=== PATIENT | male | born 1945 | race Caucasian/White ===

== ENCOUNTER 2019-12-31 21:28 | Emergency (ER) | payer OTHER, SELFPAY ==
[2019-12-31 21:38] VITALS: BP 117/74; PULSE 70; RESP 20; TEMP 36.9; O2SAT 95; BMI 27.0
--- NOTE | 2019-12-31 21:53 | XR_ITS ---
WS: [id number] PORTABLE CHEST HISTORY: sob COMPARISON: 09/20/2019 Chronic emphysema. Interstitial thickening is similar to prior studies. No pneumonia. No pleural effu jordy or pneumothorax. Cardiac size: Normal. Mediastinum/Aorta: Mild atherosclerosis aorta. Mild osteopenia. Numerous surgical sutures are noted at the GE junction and inferior to the LEFT hemidiaphragm. XR/XR chest 1V portable [id number] IMPRESSION: COPD and chronic interstitial changes. No acute findings.
[2019-12-31 22:08] VITALS: PULSE 71; RESP 20; O2SAT 97
[2019-12-31] MEDS: ipratropium-albuterol 3 mL Neb INHALATION (22:08)
[2019-12-31 22:13] VITALS: PULSE 69; RESP 20; O2SAT 96
[2019-12-31] MEDS: FUROsemide 10 mg/mL SDV 10mL 60 MG IVP (22:14)
[2019-12-31 22:18] LABS: Basophils # 0.1 10^3/uL (0.0-0.1); Basophils % 1.5 %; Eosinophils # 1.8 10^3/uL (0.0-0.8); Eosinophils % 22.5 %; Hematocrit 40.2 % (42.0-52.0); Hemoglobin 12.7 g/dL (11.7-16.6); Lymphocytes # 1.4 10^3/uL (0.8-4.8); Lymphocytes % 18.3 %; Mean Corpuscular HGB Conc 31.6 g/dL (30.0-36.0); Mean Corpuscular Hemoglobin 31.4 pg (28.0-34.0); Mean Corpuscular Volume 99.3 fL (80-94); Mean Platelet Volume 9.6 fL (7.4-10.4); Monocytes # 0.6 10^3/uL (0.2-0.9); Monocytes % 7.8 %; Neutrophils # 3.9 10^3/uL (1.8-7.7); Neutrophils % 49.8 %; Nucleated Red Blood Cells % 0 %; Platelet Count 191 10^3/cmm (130-400); Red Blood Count 4.05 10^6/uL (4.1-5.3); Red Cell Distribution Width 12.3 % (12.1-15.1); White Blood Count 7.8 10^3/uL (4.0-10.0)
--- NOTE | 2019-12-31 22:20 | ED_ITS ---
HPI - SOB/Dyspnea General: Chief Complaint: Shortness of Breath/Dyspnea Stated Complaint: SOB Time Seen by Provider: 12/31/19 21:42 History of Present Illness: MD elicited complaint: shortness of breath and cough Pertinent past history: COPD Onset (ago): day(s) Timing: constant Exacerbating factors: exertion, movement and coughing Relieving factors: oxygen and bronchodilators Known history of: COPD Associated symptoms: Deny abdominal pain, chest pain, dizziness, fever(s), nausea, orthopnea, palpitations or vomiting Treatment prior to arrival: oxygen and bronchodilator Review of Systems Const: Denies: fever or chills Eyes: Denies: change in vision ENMT: Denies: painful swallowing, swelling of lips/tongue, nose bleeds, post nasal drip or facial/sinus pain Card: Reports: edema; Denies: chest pain, palpitations, irregular heart rhythm, shortness of breath on exertion or shortness of breath when lying down Resp: Reports: shortness of breath, productive cough and wheezing; Denies: non-productive cough GI: Denies: abdominal pain, nausea, vomiting or blood in stool : Denies: difficulty urinating, painful urination or blood in urine Musc: Denies: neck pain, back pain, redness or joint warmth Skin/Breast: Denies: rash, itching or redness Neuro: Denies: headache, dizziness, vertigo or confusion Psych: Reports: anxiety PFSH ED PFSH: Social History Smoking and tobacco status: former smoker Physical Exam Const: GENERAL APPEARANCE: well developed ORIENTATION/CONSCIOUSNESS: Yes oriented to person, Yes oriented to place and Yes oriented to time HENMT: COMMON NORMALS: normocephalic, external ears normal and external nose normal HEAD & SCALP: normocephalic; no scalp tenderness FACE & SINUS: normal facial exam NOSE: external nose normal and no nasal discharge EXTERNAL EAR: Yes external ears normal MOUTH: tongue normal Eye: COMMON NORMALS: PERRL, EOMs intact bilaterally and conjunctivae normal EYELID: eyelids normal CONJUNCTIVA: Yes conjunctivae normal PUPIL: Yes PERRL Neck/C-Spine: COMMON NORMALS: full ROM GENERAL: No tracheal deviation Chest: COMMONS NORMALS: inspection of chest normal CHEST: No tenderness Resp: EFFORT & INSPECTION: Yes tachypneic, No respiratory distress, No retractions, No uses accessory muscles and No tracheal deviation AUSCULTATION: no rhonchi, wheezes and diminished lung sounds Cardio: COMMON NORMALS: regular rate and regular rhythm RATE: regular rate RHYTHM: regular rhythm HEART SOUNDS: no murmurs PERIPHERAL PULSES: radial pulses present GI: INSPECTION: No abdominal distension AUSCULTATION: No hyperactive bowel sounds and No hypoactive bowel sounds PALPATION: No guarding and No rigid PERCUSSION: no dullness to percussion and no tympanic to percussion Extremity: GENERAL: Yes edema (2+ bilaterally) Neuro: SENSORIUM/ORIENTATION: Yes oriented to person, Yes oriented to place and Yes oriented to time Psych: COMMON NORMALS: mental status grossly normal Skin: COMMON NORMALS: no rashes or lesions noted GENERAL SKIN EXAM: no rashes or lesions noted Course Vital Signs: Vital signs: Vital Signs Temperature 98.4 F 12/31/19 21:38 Pulse Rate 72 12/31/19 23:29 Respiratory Rate 20 H 12/31/19 23:29 Blood Pressure 129/73 12/31/19 23:00 Pulse Oximetry 96 12/31/19 23:29 MDM - SOB/Dyspnea MDM Narrative: Medical decision making narrative: Cough. No fever.74-year-old male with a history of COPD and productive cough without fever. White blood cell count is 7.8. Hemoglobin is 12.7. Other laboratory is normal. His chest x-ray is free of infiltrate. He is wheezing on exam, improved with nebulizer treatment here. He is about out of his inhaler, so we have dispensed him 1. He is received Solu-Medrol and some Lasix. He will go home on steroids, nebulizer/inhaler, and antibiotics. Lab Data: Labs: Lab Results 12/31/19 12/31/19 Range/Units 22:01 22:01 WBC 7.8 (4.0-10.0) 10^3/ uL RBC 4.05 L (4.1-5.3) 10^6/u L Hgb 12.7 (11.7-16.6) g/dL Hct 40.2 L (42.0-52.0) % MCV 99.3 H (80-94) fL MCH 31.4 (28.0-34.0) pg MCHC 31.6 (30.0-36.0) g/dL RDW 12.3 (12.1-15.1) % Plt Count 191 (130-400) 10^3/c mm MPV 9.6 (7.4-10.4) fL Neut % (Auto) 49.8 % Lymph % (Auto) 18.3 % [place] % (Auto) 7.8 % Eos % (Auto) 22.5 % Baso % (Auto) 1.5 % Neut # (Auto) 3.9 (1.8-7.7) 10^3/u L Lymph # (Auto) 1.4 (0.8-4.8) 10^3/u L [place] # (Auto) 0.6 (0.2-0.9) 10^3/u L Eos # (Auto) 1.8 H (0.0-0.8) 10^3/u L Baso # (Auto) 0.1 (0.0-0.1) 10^3/u L Nucleated RBC % (a uto) 0 % Nucleated RBCs # 0.0 /100WBC Sodium 142 (136-145) mmol/L Potassium 4.6 (3.5-5.1) mmol/L Chloride 102 (98-107) mmol/L Carbon Dioxide 31 H (22-29) mmol/L Anion Gap 13.6 (5-19) BUN 13 (8-23) mg/dL Creatinine 1.0 (0.7-1.2) mg/dL Glucose 107 (65-115) mg/dL Calculated Osmolal ity 291 (285-295) mOsm/k g Calcium 9.5 (8.5-10.5) mg/dL Total Bilirubin 0.4 (0.15-1.2) mg/dL AST 19 (0-40) U/L ALT 13 (0-41) U/L Alkaline Phosphata se 85 (40-130) IU/L NT-Pro-B Natriuret Pep 269 (0-450) pg/mL Total Protein 6.6 (6.6-8.7) g/dL Albumin 3.9 (3.5-5.2) g/dL Globulin 2.7 (1.3-4.6) g/dL Discharge Plan Discharge Patient Disposition: Home, Self-Care Clinical Impression: Acute exacerbation of chronic obstructive airways disease Condition: Stable Prescriptions: New prednisone 20 mg tablet 60 mg PO DAILY 5 Days Qty: 15 RF: 0 doxycycline monohydrate 100 mg capsule 100 mg PO BID 7 Days Qty: 14 RF: 0 Discharge Orders: Discharge Order (Routine); Ordered 12/31/19 Ordered By: Vega Quiroga Referrals: Thony Vargas DO [Family Provider] - 4-7 days Discharge Diet: Usual diet Discharge Activity: Increase activity as tolerated Patient Instructions: Chronic Obstructive Pulmonary Disease (ED) Activity Restrictions/Additional Instructions: Return for worsening shortness of breath despite treatment, chest discomfort, fever greater than 100, mental status changes, other concerning symptoms. Coding Level of Care Code ED Party Plan Sales Host/Hostess for Chg Fwd Exam Comprehensive
[2019-12-31 22:42] LABS: Alanine Aminotransferase 13 U/L (0-41); Albumin Level 3.9 g/dL (3.5-5.2); Alkaline Phosphatase 85 IU/L (40-130); Anion Gap 13.6 (5-19); Aspartate Amino Transferase 19 U/L (0-40); Blood Urea Nitrogen 13 mg/dL (8-23); Calcium 9.5 mg/dL (8.5-10.5); Carbon Dioxide 31 mmol/L (22-29); Chloride 102 mmol/L (98-107); Globulin 2.7 g/dL (1.3-4.6); Glucose 107 mg/dL (65-115); NT Pro B Type Natriuretic Pept 269 pg/mL (0-450); Osmolality Calculated 291 mOsm/kg (285-295); Potassium 4.6 mmol/L (3.5-5.1); Sodium 142 mmol/L (136-145); Total Bilirubin 0.4 mg/dL (0.15-1.2); Total Protein 6.6 g/dL (6.6-8.7)
[2019-12-31 23:00] VITALS: BP 129/73; PULSE 72; O2SAT 96
[2019-12-31 23:29] VITALS: PULSE 72; RESP 20; O2SAT 96
[2019-12-31] MEDS: albuterol 8 gm MDI 4 PUFF INHALATION (23:29)
[2019-12-31] MEDS: doxycycline 100 mg Tablet PO (23:42)
[2019-12-31 23:48] VITALS: BP 119/72; PULSE 73; RESP 18; O2SAT 95
== END 2019-12-31 23:48 | disposition home or self-care (01) ==
PROVIDERS: Emergency Provider Emergency Medicine; Family Provider Emergency Medicine Emergency Medical Services
DX: J44.1 Chronic obstructive pulmonary disease with (acute) exacerbation (principal); Z87.891 Personal history of nicotine dependence
CPT/HCPCS: 12345; 36415; 71045; 80053; 83880; 85025; 87040; 87070; 87205; 94640; 96374; 96375; 99283; 99284; J1940; J2930; J3535

== ENCOUNTER 2020-02-09 23:48 | Emergency (ER) | payer OTHER, SELFPAY ==
[2020-02-09 23:59] VITALS: BP 135/79; PULSE 71; RESP 18; TEMP 36.6; O2SAT 91; BMI 25.8
--- NOTE | 2020-02-10 00:19 | XR_ITS ---
WS: [id number] XR chest 1V portable [id number] REASON FOR EXAM: sob FINDINGS: The heart and mediastinal interfaces normal. Comparison to previous exam of December 31, 2019 no interval changes. The lung romero are well aerated. No pneumonia, pleural effusion, pulmonary edema, The hilum and apices normal. No osseous abnormalities. Postop changes in the upper abdomen. XR/XR chest 1V portable [id number] IMPRESSION: Negative chest for active pathology.
--- NOTE | 2020-02-10 00:20 | ECG_ITS ---
Measurements Intervals [place] Rate: 65 P: 52 NE: 151 QRS: 66 QRSD: 98 T: 77 QT: 384 QTc: 399 SINUS RHYTHM INCOMPLETE RIGHT BUNDLE BRANCH BLOCK [90+ ms QRS DURATION, TERMINAL R IN V1/V2, 40+ ms S IN I/aVL/V4/V5/V6] Compared to ECG 09/20/2019 21:17:44 Incomplete right bundle-branch block now present Myocardial infarct finding no longer present Electronically Signed On 02-10-2020 11:38:23 CDT by Kurt Stern M.D. [id number]
--- NOTE | 2020-02-10 00:20 | W.ED.SOB ---
HPI - SOB/Dyspnea General: Chief Complaint: Shortness of Breath/Dyspnea Stated Complaint: sob Time Seen by Provider: 02/10/20 00:06 History of Present Illness: HPI Narrative: 74-year-old gentleman with a history of COPD presents with wheezing, and shortness of breath. He is coughing with some sputum production. He denies fever. This really started yesterday and has been increasing in severity. He has been using his inhaler up to every 2 hours MD elicited complaint: shortness of breath and cough Pertinent past history: COPD Onset (ago): hour(s) (24) Timing: constant and progressively worsening Severity: moderate Exacerbating factors: exertion and movement Relieving factors: nothing Known history of: COPD Associated symptoms: Reports chest congestion and cough; Deny chest pain, diaphoresis, dizziness, fever(s) or nausea Review of Systems Const: Denies: fever or diaphoresis Eyes: Denies: change in vision ENMT: Denies: painful swallowing, swelling of lips/tongue, post nasal drip or facial/sinus pain Card: Denies: chest pain Resp: Reports: chest congestion GI: Denies: nausea : Denies: difficulty urinating, painful urination or blood in urine Musc: Denies: joint warmth Skin/Breast: Denies: rash or itching Neuro: Denies: headache, dizziness or vertigo Psych: Denies: anxiety PFSH ED PFSH: Social History Smoking and tobacco status: never smoked Physical Exam Const: GENERAL APPEARANCE: well developed ORIENTATION/CONSCIOUSNESS: Yes oriented to person, Yes oriented to place and Yes oriented to time HENMT: COMMON NORMALS: normocephalic HEAD & SCALP: normocephalic FACE & SINUS: normal facial exam NOSE: no nasal discharge THROAT: posterior oropharynx normal; no peritonsillar mass Eye: COMMON NORMALS: PERRL, EOMs intact bilaterally and conjunctivae normal EYELID: eyelids normal CONJUNCTIVA: Yes conjunctivae normal PUPIL: Yes PERRL Neck/C-Spine: GENERAL: No tracheal deviation Chest: COMMONS NORMALS: inspection of chest normal CHEST: No tenderness Resp: EFFORT & INSPECTION: No tachypneic, Yes respiratory distress, No retractions, Yes uses accessory muscles and No tracheal deviation AUSCULTATION: no rhonchi, wheezes and diminished lung sounds Cardio: COMMON NORMALS: regular rate and regular rhythm RATE: regular rate RHYTHM: regular rhythm HEART SOUNDS: no murmurs PERIPHERAL PULSES: radial pulses present GI: INSPECTION: No abdominal distension AUSCULTATION: No hyperactive bowel sounds and No hypoactive bowel sounds PALPATION: No guarding and No rigid PERCUSSION: no dullness to percussion and no tympanic to percussion Neuro: SENSORIUM/ORIENTATION: Yes oriented to person, Yes oriented to place and Yes oriented to time Psych: COMMON NORMALS: mental status grossly normal Skin: COMMON NORMALS: no rashes or lesions noted GENERAL SKIN EXAM: no rashes or lesions noted Course Vital Signs: Vital signs: Vital Signs Temperature 97.7 F 02/10/20 03:11 Pulse Rate 67 02/10/20 03:11 Respiratory Rate 18 02/10/20 03:11 Blood Pressure 119/89 02/10/20 03:11 Pulse Oximetry 94 02/10/20 03:11 MDM - SOB/Dyspnea MDM Narrative: Medical decision making narrative: 74-year-old male gentleman with a history of COPD. He presents in mild respiratory distress. The plan was to observe the patient, has he had significant tightness and wheezing with diminished air sounds on arrival. After DuoNeb treatment, and Solu-Medrol, along with some diuresis, he states that he is breathing much better now and would like to go home. He is wheezing less. He is not using the accessory muscles he was. His chest x-ray does not show pneumonia. Lab Data: Labs: Lab Results 02/10/20 02/10/20 02/10/20 Range/Units 00:30 00:30 00:30 WBC 9.1 (4.0-10.0) 10^3/ uL RBC 4.10 (4.1-5.3) 10^6/u L Hgb 12.7 (11.7-16.6) g/dL Hct 39.8 L (42.0-52.0) % MCV 97.1 H (80-94) fL MCH 31.0 (28.0-34.0) pg MCHC 31.9 (30.0-36.0) g/dL RDW 12.2 (12.1-15.1) % Plt Count 208 (130-400) 10^3/c mm MPV 10.0 (7.4-10.4) fL Neut % (Auto) 52.7 % Lymph % (Auto) 17.6 % [place] % (Auto) 9.0 % Eos % (Auto) 18.3 % Baso % (Auto) 2.2 % Neut # (Auto) 4.8 (1.8-7.7) 10^3/u L Lymph # (Auto) 1.6 (0.8-4.8) 10^3/u L [place] # (Auto) 0.8 (0.2-0.9) 10^3/u L Eos # (Auto) 1.7 H (0.0-0.8) 10^3/u L Baso # (Auto) 0.2 H (0.0-0.1) 10^3/u L Nucleated RBC % (a uto) 0 % Nucleated RBCs # 0.0 /100WBC Specimen Type Sample Site ABG pH (7.35-7.45) ABG pCO2 (35-45) mmHg ABG pO2 (80.0-100.0) mmH g ABG HCO3 (22-26) mmol/L ABG Base Excess (-2.0-2.0) mmol/ L Edvin Test Hematocrit (42-52) % Hgb O2 Saturation (95-100) % Carboxyhemoglobin (0.4-20.1) %THgb Methemoglobin (0.4-1.5) % Total Hemoglobin (14-18) g/dL O2 Delivery Device O2 Liters/Min % Cloth Mercerizing Supervisor ID Sodium 137 (136-145) mmol/L Potassium 5.0 (3.5-5.1) mmol/L Chloride 99 (98-107) mmol/L Carbon Dioxide 29 (22-29) mmol/L Anion Gap 14.0 (5-19) BUN 16 (8-23) mg/dL Creatinine 1.1 (0.7-1.2) mg/dL Glucose 106 (65-115) mg/dL Calculated Osmolal ity 281 L (285-295) mOsm/k g Calcium 9.7 (8.5-10.5) mg/dL Total Bilirubin 0.2 (0.15-1.2) mg/dL AST 32 (0-40) U/L ALT 15 (0-41) U/L Alkaline Phosphata se 90 (40-130) IU/L Troponin T Baselin e 18 H (0-15) ng/mL Troponin T 120 Min [place] (0-15) ng/mL Delta Troponin T (0-10) ABS# NT-Pro-B Natriuret Pep 214 (0-450) pg/mL Total Protein 6.8 (6.6-8.7) g/dL Albumin 3.7 (3.5-5.2) g/dL Globulin 3.1 (1.3-4.6) g/dL 02/10/20 02/10/20 Range/Units 00:50 02:30 WBC (4.0-10.0) 10^3/ uL RBC (4.1-5.3) 10^6/u L Hgb (11.7-16.6) g/dL Hct (42.0-52.0) % MCV (80-94) fL MCH (28.0-34.0) pg MCHC (30.0-36.0) g/dL RDW (12.1-15.1) % Plt Count (130-400) 10^3/c mm MPV (7.4-10.4) fL Neut % (Auto) % Lymph % (Auto) % [place] % (Auto) % Eos % (Auto) % Baso % (Auto) % Neut # (Auto) (1.8-7.7) 10^3/u L Lymph # (Auto) (0.8-4.8) 10^3/u L [place] # (Auto) (0.2-0.9) 10^3/u L Eos # (Auto) (0.0-0.8) 10^3/u L Baso # (Auto) (0.0-0.1) 10^3/u L Nucleated RBC % (a uto) % Nucleated RBCs # /100WBC Specimen Type Arterial Sample Site Radial, right ABG pH 7.38 (7.35-7.45) ABG pCO2 49.2 H (35-45) mmHg ABG pO2 72.2 L (80.0-100.0) mmH g ABG HCO3 29.4 H (22-26) mmol/L ABG Base Excess 3.4 H (-2.0-2.0) mmol/ L Edvin Test Pos Hematocrit 41.3 L (42-52) % Hgb O2 Saturation 94.3 L (95-100) % Carboxyhemoglobin 0.4 (0.4-20.1) %THgb Methemoglobin 0.7 (0.4-1.5) % Total Hemoglobin 13.5 L (14-18) g/dL O2 Delivery Device Nc O2 Liters/Min 2.0 % Cloth Mercerizing Supervisor ID [email or web address] Sodium (136-145) mmol/L Potassium (3.5-5.1) mmol/L Chloride (98-107) mmol/L Carbon Dioxide (22-29) mmol/L Anion Gap (5-19) BUN (8-23) mg/dL Creatinine (0.7-1.2) mg/dL Glucose (65-115) mg/dL Calculated Osmolal ity (285-295) mOsm/k g Calcium (8.5-10.5) mg/dL Total Bilirubin (0.15-1.2) mg/dL AST (0-40) U/L ALT (0-41) U/L Alkaline Phosphata se (40-130) IU/L Troponin T Baselin e (0-15) ng/mL Troponin T 120 Min [place] 15.37 H (0-15) ng/mL Delta Troponin T -2.63 L (0-10) ABS# NT-Pro-B Natriuret Pep (0-450) pg/mL Total Protein (6.6-8.7) g/dL Albumin (3.5-5.2) g/dL Globulin (1.3-4.6) g/dL Discharge Plan Discharge Patient Disposition: Home, Self-Care Clinical Impression: Acute exacerbation of chronic obstructive airways disease Condition: Stable Prescriptions: New prednisone 10 mg tablet 10 mg PO DAILY Qty: 21 RF: 0 doxycycline hyclate 100 mg capsule 100 mg PO BID Qty: 14 RF: 0 Discharge Orders: Discharge Order (Routine); Ordered 02/10/20 Ordered By: Vega Quiroga Discharge Diet: Advance as tolerated Discharge Activity: Increase activity as tolerated Patient Instructions: Chronic Obstructive Pulmonary Disease (ED) Activity Restrictions/Additional Instructions: Return for worsening shortness of breath, fever despite 3 doses of antibiotics, chest discomfort, other concerning symptoms. Coding Level of Care Code ED Ocean Rescue Lieutenant for Chg Fwd Exam Comprehensive
[2020-02-10] MEDS: FUROsemide 10 mg/mL SDV 10mL 60 MG IVP (00:42)
[2020-02-10 00:46] LABS: Basophils # 0.2 10^3/uL (0.0-0.1); Basophils % 2.2 %; Eosinophils # 1.7 10^3/uL (0.0-0.8); Eosinophils % 18.3 %; Hematocrit 39.8 % (42.0-52.0); Hemoglobin 12.7 g/dL (11.7-16.6); Lymphocytes # 1.6 10^3/uL (0.8-4.8); Lymphocytes % 17.6 %; Mean Corpuscular HGB Conc 31.9 g/dL (30.0-36.0); Mean Corpuscular Volume 97.1 fL (80-94); Monocytes # 0.8 10^3/uL (0.2-0.9); Neutrophils # 4.8 10^3/uL (1.8-7.7); Neutrophils % 52.7 %; Nucleated Red Blood Cells % 0 %; Platelet Count 208 10^3/cmm (130-400); Red Cell Distribution Width 12.2 % (12.1-15.1); White Blood Count 9.1 10^3/uL (4.0-10.0)
[2020-02-10] MEDS: ipratropium-albuterol 3 mL Neb INHALATION (00:53)
[2020-02-10 00:57] LABS: ABG PCO2 49.2 mmHg (35-45); ABG PH Result 7.38 (7.35-7.45); Arterial Blood Gas Hematocrit 41.3 % (42-52); Base Excess ABG 3.4 mmol/L (-2.0-2.0); Blood Gas Allen Test Pos; Blood Gas Sample Site Radial, right; Blood Gas Sample Type Arterial; Carboxyhemoglobin 0.4 %THgb (0.4-20.1); HCO3 ABG 29.4 mmol/L (22-26); HGB O2 Sat 94.3 % (95-100); Methemoglobin 0.7 % (0.4-1.5); Oxygen Device NC; PO2 ABG 72.2 mmHg (80.0-100.0); Total Hemoglobin 13.5 g/dL (14-18)
[2020-02-10 00:59] VITALS: PULSE 87; RESP 22; O2SAT 92
[2020-02-10 01:10] LABS: Troponin(5th) Baseline 18 ng/mL (0-15)
[2020-02-10 01:17] LABS: Albumin Level 3.7 g/dL (3.5-5.2); Alkaline Phosphatase 90 IU/L (40-130); Blood Urea Nitrogen 16 mg/dL (8-23); Calcium 9.7 mg/dL (8.5-10.5); Carbon Dioxide 29 mmol/L (22-29); Chloride 99 mmol/L (98-107); Globulin 3.1 g/dL (1.3-4.6); Glucose 106 mg/dL (65-115); NT Pro B Type Natriuretic Pept 214 pg/mL (0-450); Osmolality Calculated 281 mOsm/kg (285-295); Sodium 137 mmol/L (136-145); Total Bilirubin 0.2 mg/dL (0.15-1.2); Total Protein 6.8 g/dL (6.6-8.7)
[2020-02-10 02:06] LABS: Alanine Aminotransferase 15 U/L (0-41); Aspartate Amino Transferase 32 U/L (0-40)
[2020-02-10 03:07] LABS: Troponin 5 2HR 15.37 ng/mL (0-15)
[2020-02-10 03:11] VITALS: BP 119/89; PULSE 67; RESP 18; TEMP 36.5; O2SAT 94
[2020-02-10 03:15] LABS: Troponin 5 2HR Delta -2.63 ABS# (0-10)
[2020-02-10 03:42] VITALS: PULSE 76; RESP 16; O2SAT 98
[2020-02-10 03:54] VITALS: PULSE 77; RESP 18; O2SAT 97
== END 2020-02-10 03:45 | disposition home or self-care (01) ==
PROVIDERS: Emergency Provider Emergency Medicine
DX: J44.1 Chronic obstructive pulmonary disease with (acute) exacerbation (principal)
CPT/HCPCS: 12345; 36600; 71045; 80053; 82805; 83880; 84484; 85025; 93005; 94640; 96374; 96375; 99282; 99284; J1940; J2930; J7611

== ENCOUNTER 2020-04-10 16:18 | Emergency (ER) | payer OTHER, MEDICARE, SELFPAY ==
[2020-04-10 16:27] VITALS: BP 114/62; PULSE 81; RESP 20; TEMP 36.6; O2SAT 92; BMI 25.8
--- NOTE | 2020-04-10 17:02 | ECG_ITS ---
[facility] Test Date: 2020-04-10 Pat Name: Charles Warren Department: Room: Gender: Male Prescription Clerk Lenses: : 1945 Requested By: Scott Sanchez Order Number: [id number] Serenity MD: Meka Crisostomo M.D. Measurements Intervals [place] Rate: 76 P: 60 W[place]: 149 QRS: 57 QRSD: 97 T: 71 QT: 358 QTc: 403 Interpretive Statements SINUS RHYTHM Compared to ECG 02/10/2020 01:35:35 Incomplete right bundle-branch block no longer present Electronically Signed On 04-11-2020 17:05:02 CDT by Meka Crisostomo M.D. [id number]
--- NOTE | 2020-04-10 17:02 | XRR_ITS ---
PROCEDURE INFORMATION: Exam: XR Chest, 1 View Exam date and time: 04/10/2020 5:21 PM Age: 74 years old Clinical indication: Patient HX: Shortness of breath. HX of emphysema; Additional info: Dyspnea/cough TECHNIQUE: Imaging protocol: XR of the chest Views: 1 view. COMPARISON: No relevant prior studies available. FINDINGS: Lungs: Underlying interstitial coarsening/thickening. No lobar consolidation. Hyperinflation. Pleural space: Unremarkable. No pleural effusion. No pneumothorax. Heart/Mediastinum: Surgical clips area of GE junction and left upper quadrant of the abdomen. Vasculature: Calcified thoracic aorta. Bones/joints: Degenerative appearance right acromioclavicular joint and thoracic spine. Osteopenia. XR/XR chest 1V portable [id number] IMPRESSION: Underlying interstitial coarsening/thickening.
--- NOTE | 2020-04-10 17:02 | W.ED.SOB ---
Documented by User: Scott Phan DO 04/11/20 15:46 HPI - SOB/Dyspnea General: Chief Complaint: Shortness of Breath/Dyspnea Stated Complaint: sob Time Seen by Provider: 04/10/20 16:59 History of Present Illness: HPI Narrative: 74 yo male comes in with complaint of COPD worsening today's been progressively worsening the last 3 days she usually uses 3 L/min by oxygen at home today he is several nebs he is not had any change in cough not had any fever but he is still having a productive cough which she states is his normal baseline after nebulizer will cough some things up on a regular basis. He has not been around anybody that said COVID-19 that he is aware of. He did not use any nebulizers just prior to coming in today. MD elicited complaint: cough Pertinent past history: COPD Onset (ago): day(s) Timing: intermittent Severity: moderate Exacerbating factors: exertion Relieving factors: bronchodilators Known history of: COPD Associated symptoms: Reports chest congestion, cough and nausea; Deny chest pain, fever(s) or orthopnea Treatment prior to arrival: oxygen and bronchodilator Review of Systems Const: Denies: fever(s), chills, body aches, change in appetite, fatigue or malaise ENMT: Denies: throat pain, ear or mastoid pain, nasal discharge or nasal congestion Card: Denies: chest pain, edema, dyspnea on exertion or orthopnea Resp: Reports: chest congestion GI: Reports: nausea : Denies: flank pain, dysuria, urinary frequency or urinary urgency Skin/Breast: Denies: rash or pruritus PFSH ED PFSH: Medical History (Updated 04/11/20 @ 15:44 by Scott Phan DO) COPD (chronic obstructive pulmonary disease) Diverticulosis Gastric ulcer Surgical History (Updated 04/11/20 @ 15:44 by Scott Phan DO) History of arthroplasty of left knee History of colon resection Social History Smoking and tobacco status: never smoked Physical Exam Const: COMMON NORMALS: no acute distress GENERAL APPEARANCE: cooperative and comfortable ORIENTATION/CONSCIOUSNESS: Yes awake, Yes oriented to person, Yes oriented to place and Yes oriented to time HENMT: COMMON NORMALS: normocephalic, atraumatic, hearing grossly normal bilaterally, external ears normal, EAC's normal, TM's normal bilaterally and Normal nasal mucous membranes and turbinates present HEAD & SCALP: normocephalic and atraumatic NOSE: Normal nasal mucous membranes and turbinates present EXTERNAL EAR: Yes external ears normal EXTERNAL AUDITORY CANAL: EAC's normal TYMPANIC MEMBRANE: TM's normal bilaterally Eye: COMMON NORMALS: Equal, round and reactive pupils present, EOMs intact bilaterally, conjunctivae normal and no scleral icterus CONJUNCTIVA: Yes conjunctivae normal PUPIL: Yes Equal, round and reactive pupils present Neck/C-Spine: COMMON NORMALS: full ROM, no lymphadenopathy, supple and no JVD Lymph: LYMPHATIC: no lymphadenopathy noted and no lymphedema noted Resp: COMMON NORMALS: normal respiratory effort, No retractions, No use of accessory muscles and clear to auscultation bilaterally AUSCULTATION: clear to auscultation bilaterally Cardio: COMMON NORMALS: no JVD, regular rate, regular rhythm and No murmurs present (Cardio) RATE: regular rate RHYTHM: regular rhythm GI: COMMON NORMALS: Soft to palpation and No hepatosplenomegaly present AUSCULTATION: Yes normoactive bowel sounds PALPATION: Yes Soft to palpation, No Tenderness to palpation present (GI), No Guarding due to palpation present (GI) and Yes No hepatosplenomegaly present Extremity: COMMON NORMALS: normal to inspection, capillary refill normal, no clubbing, cyanosis or edema, no calf tenderness and no pedal edema Neuro: SENSORIUM/ORIENTATION: Yes oriented to person, Yes oriented to place and Yes oriented to time Skin: COMMON NORMALS: no rashes or lesions noted GENERAL SKIN EXAM: no rashes or lesions noted Course Vital Signs: Vital signs: Vital Signs Temperature 97.9 F 04/10/20 16:27 Pulse Rate 76 04/10/20 19:56 Respiratory Rate 20 H 04/10/20 19:56 Blood Pressure 132/63 04/10/20 19:56 Pulse Oximetry 95 04/10/20 19:56 MDM - SOB/Dyspnea MDM Narrative: Medical decision making narrative: Case turned over to Dr. Freedman at change of shift see his note for definitive diagnosis and disposition Lab Data: Labs: Lab Results 04/10/20 04/10/20 04/10/20 Range/Units 17:33 17:33 17:33 WBC 9.3 (4.0-10.0) 10^3/ uL RBC 3.83 L (4.1-5.3) 10^6/u L Hgb 11.8 (11.7-16.6) g/dL Hct 38.4 L (42.0-52.0) % MCV 100.3 H (80-94) fL MCH 30.8 (28.0-34.0) pg MCHC 30.7 (30.0-36.0) g/dL RDW 13.0 (12.1-15.1) % Plt Count 220 (130-400) 10^3/c mm MPV 9.4 (7.4-10.4) fL Neut % (Auto) 51.4 % Lymph % (Auto) 16.8 % Morehouse % (Auto) 9.6 % Eos % (Auto) 20.4 % Baso % (Auto) 1.7 % Neut # (Auto) 4.75 (1.8-7.7) 10^3/u L Lymph # (Auto) 1.6 (0.8-4.8) 10^3/u L Morehouse # (Auto) 0.9 (0.2-0.9) 10^3/u L Eos # (Auto) 1.9 H (0.0-0.8) 10^3/u L Baso # (Auto) 0.2 H (0.0-0.1) 10^3/u L Nucleated RBC % (a uto) 0 % Nucleated RBCs # 0.0 /100WBC Specimen Type Sample Site ABG pH (7.35-7.45) ABG pCO2 (35-45) mmHg ABG pO2 (80.0-100.0) mmH g ABG HCO3 (22-26) mmol/L ABG O2 Saturation ABG Base Excess (-2.0-2.0) mmol/ L Edvin Test A-a O2 Gradient (5-10) mmHg Hematocrit (42-52) % Hgb O2 Saturation (95-100) % Carboxyhemoglobin (0.4-20.1) %THgb Methemoglobin (0.4-1.5) % Total Hemoglobin (14-18) g/dL Ionized Calcium (1.1-1.4) mmol/L O2 Delivery Device O2 Liters/Min % FiO2 % Wildlife [employer] Professional ID Sodium 141 (136-145) mmol/L Potassium 4.4 (3.5-5.1) mmol/L Chloride 100 (98-107) mmol/L Carbon Dioxide 35 H (22-29) mmol/L Anion Gap 10.4 (5-19) BUN 16 (8-23) mg/dL Creatinine 1.3 H (0.7-1.2) mg/dL Glucose 100 (65-115) mg/dL Calculated Osmolal ity 288 (285-295) mOsm/k g Calcium 9.4 (8.5-10.5) mg/dL Total Bilirubin 0.4 (0.15-1.2) mg/dL AST 26 (0-40) U/L ALT 17 (0-41) U/L Alkaline Phosphata se 79 (40-130) IU/L Troponin T Baselin e 25 H (0-15) ng/L Troponin T 120 Min kenaitze (0-15) ng/L Delta Troponin T (0-10) ABS# Total Protein 6.5 L (6.6-8.7) g/dL Albumin 3.8 (3.5-5.2) g/dL Globulin 2.7 (1.3-4.6) g/dL 04/10/20 04/10/20 Range/Units 18:06 18:49 WBC (4.0-10.0) 10^3/ uL RBC (4.1-5.3) 10^6/u L Hgb (11.7-16.6) g/dL Hct (42.0-52.0) % MCV (80-94) fL MCH (28.0-34.0) pg MCHC (30.0-36.0) g/dL RDW (12.1-15.1) % Plt Count (130-400) 10^3/c mm MPV (7.4-10.4) fL Neut % (Auto) % Lymph % (Auto) % Morehouse % (Auto) % Eos % (Auto) % Baso % (Auto) % Neut # (Auto) (1.8-7.7) 10^3/u L Lymph # (Auto) (0.8-4.8) 10^3/u L [place]house # (Auto) (0.2-0.9) 10^3/u L Eos # (Auto) (0.0-0.8) 10^3/u L Baso # (Auto) (0.0-0.1) 10^3/u L Nucleated RBC % (a uto) % Nucleated RBCs # /100WBC Specimen Type Arterial Sample Site Radial, left ABG pH 7.42 (7.35-7.45) ABG pCO2 53.6 H (35-45) mmHg ABG pO2 45.5 L (80.0-100.0) mmH g ABG HCO3 34.7 H (22-26) mmol/L ABG O2 Saturation 83.9 ABG Base Excess 8.6 H (-2.0-2.0) mmol/ L Edvin Test Pos A-a O2 Gradient 86.4 H (5-10) mmHg Hematocrit 38.5 L (42-52) % Hgb O2 Saturation 82.5 L (95-100) % Carboxyhemoglobin 0.9 (0.4-20.1) %THgb Methemoglobin 0.8 (0.4-1.5) % Total Hemoglobin 12.6 L (14-18) g/dL Ionized Calcium 1.2 (1.1-1.4) mmol/L O2 Delivery Device Nc O2 Liters/Min 2.0 % FiO2 28.0 % Wildlife Policy Professional ID ed Sodium 142.0 (136-145) mmol/L Potassium 3.8 (3.5-5.1) mmol/L Chloride (98-107) mmol/L Carbon Dioxide (22-29) mmol/L Anion Gap (5-19) BUN (8-23) mg/dL Creatinine (0.7-1.2) mg/dL Glucose 100.0 (65-115) mg/dL Calculated Osmolal ity (285-295) mOsm/k g Calcium (8.5-10.5) mg/dL Total Bilirubin (0.15-1.2) mg/dL AST (0-40) U/L ALT (0-41) U/L Alkaline Phosphata se (40-130) IU/L Troponin T Baselin e (0-15) ng/L Troponin T 120 Min kenaitze 23.45 H (0-15) ng/L Delta Troponin T -1.55 L (0-10) ABS# Total Protein (6.6-8.7) g/dL Albumin (3.5-5.2) g/dL Globulin (1.3-4.6) g/dL Discharge Plan Discharge Patient Disposition: Home, Self-Care Clinical Impression: Acute exacerbation of chronic obstructive airways disease Condition: Stable Prescriptions: New prednisone 10 mg tablet 20 mg PO TID 5 Days Qty: 30 RF: 0 doxycycline hyclate 100 mg capsule 100 mg PO BID 10 Days Qty: 20 RF: 0 albuterol sulfate 90 mcg/actuation HFA aerosol inhaler 2 inh INHALATION Q4H PRN (Reason: shortness of breath or wheezing) Qty: 6.7 RF: 0 No Action prednisone 10 mg tablet 10 mg PO DAILY Qty: 21 RF: 0 doxycycline hyclate 100 mg capsule 100 mg PO BID Qty: 14 RF: 0 Discharge Orders: Discharge Order (Routine); Ordered 04/10/20 Ordered By: Margy Read Referrals: Connor Garcia MD [Physician] - 4-7 days Discharge Diet: Usual diet Discharge Activity: Increase activity as tolerated Patient Instructions: Chronic Obstructive Pulmonary Disease (ED) Activity Restrictions/Additional Instructions: Please return to the ER immediately for any of the signs or symptoms listed on your discharge instruction sheets, worsening/changing of your symptoms, you are not getting better as quickly as expected, or for ANY other cause or concerns. Return to the ER for chest pain, new onset of fever, worsening of your shortness of breath, or for any other cause for concern. Discharge Date/Time: 04/10/20 19:57 Sign Out Sign Out Data: Patient Sign Out occurred on 04/10/20 at 18:11. Patient's care was discussed, and care was transferred from to Margy Read. Coding Level of Care Code ED Drafter Commercial for Chg Fwd Documented by User: Margy Read 04/10/20 19:31 HPI - SOB/Dyspnea General: Chief Complaint: Shortness of Breath/Dyspnea Stated Complaint: sob Time Seen by Provider: 04/10/20 16:59 PFSH ED PFSH: Medical History (Updated 07/09/20 @ 15:44 by Scott Phan DO) COPD (chronic obstructive pulmonary disease) Diverticulosis Gastric ulcer Surgical History (Updated 04/11/20 @ 15:44 by Scott Phan DO) History of arthroplasty of left knee History of colon resection Social History Smoking and tobacco status: never smoked Course Vital Signs: Vital signs: Vital Signs Temperature 97.9 F 04/10/20 16:27 Pulse Rate 76 04/10/20 19:56 Respiratory Rate 20 H 04/10/20 19:56 Blood Pressure 132/63 04/10/20 19:56 Pulse Oximetry 95 04/10/20 19:56 MDM - SOB/Dyspnea MDM Narrative: Medical decision making narrative: 1829 -Case inherited by me at change of shift from Dr. Phan. Please see his note for his history, physical exam and medical decision-making notes. Patient described to me is likely a COPD exacerbation. Question of chest pain by Dr. Phan. Upon my history the patient states he is never had chest pain. His first EKG is unremarkable. His first troponin is slightly elevated with no old for comparison. Patient has some wheezing and rhonchi on exam but he states he feels much better after his breathing treatment. After discussion he reluctantly agrees to stay for another EKG and troponin but is adamant he wants to go home. 0 -patient is still wanting to go home and his breathing is better. I will send him home with an albuterol inhaler, prednisone and doxycycline. He is not on of these medications at home normally. He agrees to follow-up with his doctor and have also referred him to Dr. Garcia. I again reviewed the reasons for him return to the ER and he states he understands. He will follow-up as directed or return here if needed. Lab Data: Attestation: I reviewed the patient's lab results. Labs: Lab Results 04/10/20 04/10/20 04/10/20 Range/Units 17:33 17:33 17:33 WBC 9.3 (4.0-10.0) 10^3/ uL RBC 3.83 L (4.1-5.3) 10^6/u L Hgb 11.8 (11.7-16.6) g/dL Hct 38.4 L (42.0-52.0) % MCV 100.3 H (80-94) fL MCH 30.8 (28.0-34.0) pg MCHC 30.7 (30.0-36.0) g/dL RDW 13.0 (12.1-15.1) % Plt Count 220 (130-400) 10^3/c mm MPV 9.4 (7.4-10.4) fL Neut % (Auto) 51.4 % Lymph % (Auto) 16.8 % Morehouse % (Auto) 9.6 % Eos % (Auto) 20.4 % Baso % (Auto) 1.7 % Neut # (Auto) 4.75 (1.8-7.7) 10^3/u L Lymph # (Auto) 1.6 (0.8-4.8) 10^3/u L Morehouse # (Auto) 0.9 (0.2-0.9) 10^3/u L Eos # (Auto) 1.9 H (0.0-0.8) 10^3/u L Baso # (Auto) 0.2 H (0.0-0.1) 10^3/u L Nucleated RBC % (a uto) 0 % Nucleated RBCs # 0.0 /100WBC Specimen Type Sample Site ABG pH (7.35-7.45) ABG pCO2 (35-45) mmHg ABG pO2 (80.0-100.0) mmH g ABG HCO3 (22-26) mmol/L ABG O2 Saturation ABG Base Excess (-2.0-2.0) mmol/ L Edvin Test A-a O2 Gradient (5-10) mmHg Hematocrit (42-52) % Hgb O2 Saturation (95-100) % Carboxyhemoglobin (0.4-20.1) %THgb Methemoglobin (0.4-1.5) % Total Hemoglobin (14-18) g/dL Ionized Calcium (1.1-1.4) mmol/L O2 Delivery Device O2 Liters/Min % FiO2 % Wildlife Policy Professional ID Sodium 141 (136-145) mmol/L Potassium 4.4 (3.5-5.1) mmol/L Chloride 100 (98-107) mmol/L Carbon Dioxide 35 H (22-29) mmol/L Anion Gap 10.4 (5-19) BUN 16 (8-23) mg/dL Creatinine 1.3 H (0.7-1.2) mg/dL Glucose 100 (65-115) mg/dL Calculated Osmolal ity 288 (285-295) mOsm/k g Calcium 9.4 (8.5-10.5) mg/dL Total Bilirubin 0.4 (0.15-1.2) mg/dL AST 26 (0-40) U/L ALT 17 (0-41) U/L Alkaline Phosphata se 79 (40-130) IU/L Troponin T Baselin e 25 H (0-15) ng/L Troponin T 120 Min kenaitze (0-15) ng/L Delta Troponin T (0-10) ABS# Total Protein 6.5 L (6.6-8.7) g/dL Albumin 3.8 (3.5-5.2) g/dL Globulin 2.7 (1.3-4.6) g/dL 04/10/20 04/10/20 Range/Units 18:06 18:49 WBC (4.0-10.0) 10^3/ uL RBC (4.1-5.3) 10^6/u L Hgb (11.7-16.6) g/dL Hct (42.0-52.0) % MCV (80-94) fL MCH (28.0-34.0) pg MCHC (30.0-36.0) g/dL RDW (12.1-15.1) % Plt Count (130-400) 10^3/c mm MPV (7.4-10.4) fL Neut % (Auto) % Lymph % (Auto) % Morehouse % (Auto) % Eos % (Auto) % Baso % (Auto) % Neut # (Auto) (1.8-7.7) 10^3/u L Lymph # (Auto) (0.8-4.8) 10^3/u L Morehouse # (Auto) (0.2-0.9) 10^3/u L Eos # (Auto) (0.0-0.8) 10^3/u L Baso # (Auto) (0.0-0.1) 10^3/u L Nucleated RBC % (a uto) % Nucleated RBCs # /100WBC Specimen Type Arterial Sample Site Radial, left ABG pH 7.42 (7.35-7.45) ABG pCO2 53.6 H (35-45) mmHg ABG pO2 45.5 L (80.0-100.0) mmH g ABG HCO3 34.7 H (22-26) mmol/L ABG O2 Saturation 83.9 ABG Base Excess 8.6 H (-2.0-2.0) mmol/ L Edvin Test Pos A-a O2 Gradient 86.4 H (5-10) mmHg Hematocrit 38.5 L (42-52) % Hgb O2 Saturation 82.5 L (95-100) % Carboxyhemoglobin 0.9 (0.4-20.1) %THgb Methemoglobin 0.8 (0.4-1.5) % Total Hemoglobin 12.6 L (14-18) g/dL Ionized Calcium 1.2 (1.1-1.4) mmol/L O2 Delivery Device Nc O2 Liters/Min 2.0 % FiO2 28.0 % Wildlife Policy Professional ID ed Sodium 142.0 (136-145) mmol/L Potassium 3.8 (3.5-5.1) mmol/L Chloride (98-107) mmol/L Carbon Dioxide (22-29) mmol/L Anion Gap (5-19) BUN (8-23) mg/dL Creatinine (0.7-1.2) mg/dL Glucose 100.0 (65-115) mg/dL Calculated Osmolal ity (285-295) mOsm/k g Calcium (8.5-10.5) mg/dL Total Bilirubin (0.15-1.2) mg/dL AST (0-40) U/L ALT (0-41) U/L Alkaline Phosphata se (40-130) IU/L Troponin T Baselin e (0-15) ng/L Troponin T 120 Min kenaitze 23.45 H (0-15) ng/L Delta Troponin T -1.55 L (0-10) ABS# Total Protein (6.6-8.7) g/dL Albumin (3.5-5.2) g/dL Globulin (1.3-4.6) g/dL Imaging Data^: CXR: My impression: Chronic COPD changes but no acute cardiopulmonary findings. Unchanged from previous. EKG Data^: EKG 1: Attestation: I personally reviewed and interpreted this EKG as follows: EKG Interpretation Date: 04/10/20 EKG interpretation time: 17:18 Interpretation: Normal sinus rhythm at 76 beats a minute,, normal intervals, no acute ST-T wave changes. EKG 2: Attestation: I personally reviewed and interpreted this EKG as follows: EKG Interpretation Date: 04/10/20 EKG interpretation time: 19:15 Interpretation: Normal sinus rhythm at 73 beats a minute, no blocks, normal intervals, no acute ST or T wave changes. Unchanged from previous. Discharge Plan Discharge Patient Disposition: Home, Self-Care Clinical Impression: Acute exacerbation of chronic obstructive airways disease Condition: Stable Prescriptions: New prednisone 10 mg tablet 20 mg PO TID 5 Days Qty: 30 RF: 0 doxycycline hyclate 100 mg capsule 100 mg PO BID 10 Days Qty: 20 RF: 0 albuterol sulfate 90 mcg/actuation HFA aerosol inhaler 2 inh INHALATION Q4H PRN (Reason: shortness of breath or wheezing) Qty: 6.7 RF: 0 No Action prednisone 10 mg tablet 10 mg PO DAILY Qty: 21 RF: 0 doxycycline hyclate 100 mg capsule 100 mg PO BID Qty: 14 RF: 0 Discharge Orders: Discharge Order (Routine); Ordered 04/10/20 Ordered By: Margy Read Referrals: Connor Garcia MD [Physician] - 4-7 days Discharge Diet: Usual diet Discharge Activity: Increase activity as tolerated Patient Instructions: Chronic Obstructive Pulmonary Disease (ED) Activity Restrictions/Additional Instructions: Please return to the ER immediately for any of the signs or symptoms listed on your discharge instruction sheets, worsening/changing of your symptoms, you are not getting better as quickly as expected, or for ANY other cause or concerns. Return to the ER for chest pain, new onset of fever, worsening of your shortness of breath, or for any other cause for concern. Discharge Date/Time: 04/10/20 19:57 Sign Out Sign Out Data: Patient Sign Out occurred on 04/10/20 at 18:11. Patient's care was discussed, and care was transferred from to Margy Read. Coding Level of Care Code ED Drafter Commercial for Vidal Alvarenga
[2020-04-10 17:42] LABS: Basophils # 0.2 10^3/uL (0.0-0.1); Basophils % 1.7 %; Eosinophils # 1.9 10^3/uL (0.0-0.8); Eosinophils % 20.4 %; Hematocrit 38.4 % (42.0-52.0); Hemoglobin 11.8 g/dL (11.7-16.6); Lymphocytes # 1.6 10^3/uL (0.8-4.8); Lymphocytes % 16.8 %; Mean Corpuscular HGB Conc 30.7 g/dL (30.0-36.0); Mean Corpuscular Hemoglobin 30.8 pg (28.0-34.0); Mean Corpuscular Volume 100.3 fL (80-94); Mean Platelet Volume 9.4 fL (7.4-10.4); Monocytes # 0.9 10^3/uL (0.2-0.9); Monocytes % 9.6 %; Neutrophils # 4.75 10^3/uL (1.8-7.7); Neutrophils % 51.4 %; Nucleated Red Blood Cells % 0 %; Platelet Count 220 10^3/cmm (130-400); Red Blood Count 3.83 10^6/uL (4.1-5.3); White Blood Count 9.3 10^3/uL (4.0-10.0)
[2020-04-10 18:00] LABS: Troponin(5th) Baseline 25 ng/L (0-15)
[2020-04-10 18:01] LABS: Alanine Aminotransferase 17 U/L (0-41); Albumin Level 3.8 g/dL (3.5-5.2); Alkaline Phosphatase 79 IU/L (40-130); Anion Gap 10.4 (5-19); Aspartate Amino Transferase 26 U/L (0-40); Blood Urea Nitrogen 16 mg/dL (8-23); Calcium 9.4 mg/dL (8.5-10.5); Carbon Dioxide 35 mmol/L (22-29); Chloride 100 mmol/L (98-107); Globulin 2.7 g/dL (1.3-4.6); Glucose 100 mg/dL (65-115); Osmolality Calculated 288 mOsm/kg (285-295); Potassium 4.4 mmol/L (3.5-5.1); Sodium 141 mmol/L (136-145); Total Bilirubin 0.4 mg/dL (0.15-1.2); Total Protein 6.5 g/dL (6.6-8.7)
[2020-04-10 18:17] LABS: ABG PCO2 53.6 mmHg (35-45); ABG PH Result 7.42 (7.35-7.45); Alveolar-Arterial Oxygen Gradi 86.4 mmHg (5-10); Arterial Blood Gas Hematocrit 38.5 % (42-52); Base Excess ABG 8.6 mmol/L (-2.0-2.0); Blood Gas Allen Test Pos; Blood Gas Sample Site Radial, left; Blood Gas Sample Type Arterial; Carboxyhemoglobin 0.9 %THgb (0.4-20.1); HCO3 ABG 34.7 mmol/L (22-26); HGB O2 Sat 82.5 % (95-100); Ionized Calcium Level - ABG 1.2 mmol/L (1.1-1.4); Methemoglobin 0.8 % (0.4-1.5); Oxygen Device NC; Oxygen Saturation ABG 83.9; PO2 ABG 45.5 mmHg (80.0-100.0); Potassium Level - ABG 3.8 mmol/L (3.5-5.0); Total Hemoglobin 12.6 g/dL (14-18)
[2020-04-10 18:22] VITALS: PULSE 73; RESP 18; O2SAT 93
[2020-04-10] MEDS: ipratropium-albuterol 3 mL Neb 9 ML INHALATION (18:22)
[2020-04-10 18:40] VITALS: PULSE 69
--- NOTE | 2020-04-10 19:02 | ECG_ITS ---
[facility] Test Date: 2020-04-10 Pat Name: Charles Warren Department: Room: Gender: Male Identification Technician: : 1945 Requested By: Scott Sanchez Order Number: [id number] Serenity MD: Meka Crisostomo M.D. Measurements Intervals [place] Rate: 73 P: 62 DE: 158 QRS: 56 QRSD: 100 T: 66 QT: 375 QTc: 414 Interpretive Statements SINUS RHYTHM Compared to ECG 04/10/2020 17:18:31 No significant changes Electronically Signed On 04-11-2020 17:21:22 CDT by Meka Crisostomo M.D. [id number]
[2020-04-10 19:13] VITALS: BP 116/71; PULSE 75; RESP 20; O2SAT 92
[2020-04-10 19:26] VITALS: O2SAT 93
[2020-04-10 19:26] LABS: Troponin 5 2HR 23.45 ng/L (0-15)
[2020-04-10 19:31] LABS: Troponin 5 2HR Delta -1.55 ABS# (0-10)
[2020-04-10] MEDS: predniSONE 20 mg Tablet 60 MG PO (19:53)
[2020-04-10 19:56] VITALS: BP 132/63; PULSE 76; RESP 20; O2SAT 95
== END 2020-04-10 19:57 | disposition home or self-care (01) ==
PROVIDERS: Family Medicine; Emergency Provider Emergency Medicine
DX: J44.1 Chronic obstructive pulmonary disease with (acute) exacerbation (principal)
CPT/HCPCS: 12345; 36415; 36600; 71045; 80051; 80053; 82810; 83986; 84484; 85025; 93005; 94640; 96374; 96375; 99282; 99284; J2930; J3535; J7512

== ENCOUNTER 2020-05-16 10:25 | Outpatient (CLI) | payer OTHER, SELFPAY ==
--- NOTE | 2020-05-16 10:38 | CT_ITS ---
WS: [id number] CT CHEST TECHNIQUE: Noncontrast CT of the chest with coronal and sagittal reformatted images. CLINICAL INFORMATION: Lung screening COMPARISON: None. DLP: 804.[address] scans at [facility] use at least one of these dose optimization techniques: automat ed exposure control; mA and/or kV adjustment per patient size (includes targeted exams where dose is matched to clinical indication); or iterative reconstruction. FINDINGS: Mild chronic emphysematous changes. No acute pulmonary infiltrates. No consolidation or pleural fluid . No focal pneumonia. Slight subsegmental atelectasis in the lung bases. No suspicious pulmonary parenchymal opacities. Nor mal caliber thoracic aorta. Mild aortic calcification. Normal coronary calcification. Normal thyroid. No axillary lymphadenopathy. Adrenal glands are normal. Postoperative changes at the GE junction. Normal gallbladder. No axillary lymphadenopathy. Mild thoracic kyphosis with anterior wedging lower thoracic spine. Anterior hypertrophic changes. CT/CT chest wo con [id number] IMPRESSION: 1. Mild chronic emphysematous changes. 2. No acute pulmonary infiltrates. 3. No suspicious pulmonary parenchymal opacities. 4. No mediastinal or hilar lymphadenopathy. 5. Mild coronary calcification.
--- NOTE | 2020-05-16 10:38 | USCV_ITS ---
Charles Warren Age: 74 Gender: M : 1945 Exam Date: 05/16/2020 11:00 Ordering Phys: Alessio Russo MD Technologist: Jackie Victor Exam Location: [facility] [place] Indication: RSVP, CARDIAC FUNCTION BP: 93 / 53 HR: 66 Rhythm: Sinus Technical Quality: Technically difficult study MEASUREMENTS (Male / Female) Normal Values 2D ECHO LV Chamber Size 3.6 cm RV Chamber Size 3.3 cm LVOT Diameter 2.0 cm LV Ejection Fraction MOD 2C 61.6 % LV Ejection Fraction 2C AL 60.9 % LA Width 3.9 cm LA Height 4.6 cm RA Width 3.9 cm RA Height 4.8 cm DOPPLER AV Peak Velocity 172.0 cm/s LVOT Peak Velocity 171.0 cm/s AV Area Cont Eq vti 3.0 cm squared AV Area Cont Eq pk 3.2 cm squared MV Area PHT 2.4 cm squared Mitral E to A Ratio 0.8 MV E' Velocity 8.0 cm/s Mitral E to MV E' Ratio 9.3 Mitral E to LV E' Lateral Ratio 10.3 Mitral E to LV E' Septal Ratio 8.5 TR Peak Velocity 182.0 cm/s TR Peak Gradient 13.2 mmHg TR Mean Velocity 156.8 cm/s TR Mean Gradient 9.9 mmHg TR Velocity Time Integral 39.9 cm TV Peak E Velocity 67.0 cm/s Right Atrial Pressure 8.0 mmHg Pulmonary Artery Systolic Pressu 21.2 mmHg FINDINGS Left Ventricle Normal left ventricular size, systolic function and wall thickness, with no regional wall motion abnormalities. LV EF is normal with LVEF of 55-60%. Normal left ventricular wall thickness. Grade 1 diastolic dysfunction is noted Right Ventricle The right ventricle is normal in size and function. Right Atrium The right atrium is normal in size. Left Atrium The left atrium is normal in size. Mitral Valve Structurally normal mitral valve without significant stenosis or prolapse. There is no mitral regurgitation. Aortic Valve Structurally normal aortic valve without significant sclerosis or stenosis. There is no aortic regurgitation. Tricuspid Valve Structurally normal tricuspid valve without significant stenosis or regurgitation. Insufficient TR jet to measure RVSP Pulmonic Valve Structurally normal pulmonic valve without significant stenosis. There is no pulmonic regurgitation. Pericardium Normal pericardium without effusion. Aorta Normal ascending aorta dimension. CONCLUSIONS LV function is normal with LVEF of 55-60% Diastolic function is consistent with grade 1 diastolic dysfunction Kurtis Beverly MD (Electronically Signed) Final Date: 16 May 2020 14:17 S
--- NOTE | 2020-05-16 12:30 | PFTS_ITS ---
Date of Study:05/16/20 Date of Dictation: MECHANICS: Forced vital capacity (FVC) is reduced. Forced expiratory volume in one second (FEV1) is reduced. FEV1/FVC is reduced. FLOW VOLUME LOOP: Reduced airflow at all lung volumes with significant scooping. LUNG VOLUMES: Not performed DIFFUSING CAPACITY FOR CARBON MONOXIDE: Normal. INTERPRETATION: The pulmonary function tests are consistent with severe airflow obstruction. There is no significant postbronchodilator response. Lung volumes are not measured. Gas exchange (DLCO) is normal. MTDD
== END 2020-05-16 10:26 | disposition home or self-care (01) ==
LOC: US 10:26
PROVIDERS: PCP Emergency Medicine Emergency Medical Services; Visit Provider Internal Medicine Pulmonary Disease
DX: J44.9 Chronic obstructive pulmonary disease, unspecified (principal); I51.81 Takotsubo syndrome; I25.10 Atherosclerotic heart disease of native coronary artery without angina pectoris
CPT/HCPCS: 71250; 93306; 94060; 94729; J7611

== ENCOUNTER 2021-08-11 08:01 | Outpatient (CLI) | payer OTHER, SELFPAY ==
--- NOTE | 2021-08-11 08:08 | CT_ITS ---
WS: [id number] CT NECK TECHNIQUE: Contrast-enhanced CT of the neck with coronal and sagittal reformatted images. CLINICAL INFORMATION: QUESTIONABLE DENISITY OF RIGHT LOWER NECK COMPARISON: Outside chest CT July 24, 2021 DLP: 919.[address] scans at [facility] use at least one of these dose optimization techniques: automated e xposure control; mA and/or kV adjustment per patient size (includes targeted exams where dose is matc hed to clinical indication); or iterative reconstruction. FINDINGS: In the midline lower neck and right lower neck, in the area of concern, there is a prominen t opacified external jugular vein extending to the midline which likely corresponds to the outside no ncontrast CT findings. No suspicious abnormalities in the right lower neck. Parotid glands are normal. Normal submandibular glands. Normal parapharyngeal fat. No evidence of sup raglottic or glottic mass. Subglottic airway is patent. Normal vallecula and piriform sinuses. Normal thyroid gland. Lung apices are well aerated. Mild cervical curve. Mild spondylitic changes.Partially visualized intracranial contents are normal. Mild calcified atheromatous disease both carotid bulbs right greater than left. Mastoid air cells wel l aerated. CT/CT neck w con* [id number] IMPRESSION: 1. Normal salivary glands. 2. No evidence of supraglottic or glottic mass. Subglottic airway is patent. 3. No cervical lymphadenopathy. 4. No suspicious abnormalities to correspond to the outside CT findings.
[2021-08-11 08:35] LABS: Blood Urea Nitrogen 11 mg/dL (8-23)
[2021-08-11] MEDS: iohexol 300 mg/mL 100 mL Btl IV (08:48)
== END 2021-08-11 08:02 | disposition home or self-care (01) ==
PROVIDERS: PCP Emergency Medicine Emergency Medical Services; Visit Provider Nurse Practitioner Family
DX: R93.0 Abnormal findings on diagnostic imaging of skull and head, not elsewhere classified (principal)
CPT/HCPCS: 70491; 82565; 84520; Q9967

== ENCOUNTER → 2022-05-14 09:21 | Outpatient (BNVA) | payer OTHER, SELFPAY | PROVIDERS: PCP Emergency Medicine Emergency Medical Services; Visit Provider Internal Medicine Pulmonary Disease | DX: J44.9 Chronic obstructive pulmonary disease, unspecified (principal); Z87.891 Personal history of nicotine dependence; Z99.81 Dependence on supplemental oxygen | CPT/HCPCS: 99214 ==

== ENCOUNTER 2022-07-08 09:57 | Outpatient (CLI) | payer OTHER, SELFPAY ==
--- NOTE | 2022-07-08 13:13 | PFTS_ITS ---
Date of Study:07/08/22 Date of Dictation: MECHANICS: Forced vital capacity (FVC) is reduced. Forced expiratory volume in one second (FEV1) is reduced. FEV1/FVC is reduced. FLOW VOLUME LOOP: Reduced flow at all lung volumes with significant scooping. LUNG VOLUMES: Total lung capacity (TLC) is normal. Residual volume (RV) is increased. DIFFUSING CAPACITY FOR CARBON MONOXIDE: Normal. INTERPRETATION: The postbronchodilator spirometry is consistent with moderate airflow obstruction. There is no significant postbronchodilator response. Lung volumes are consistent with air trapping. Gas exchange (DLCO) is normal. MTDD
== END 2022-07-08 09:58 | disposition home or self-care (01) ==
LOC: RT 10:00
PROVIDERS: PCP Emergency Medicine Emergency Medical Services; Visit Provider Internal Medicine Pulmonary Disease
DX: R06.00 Dyspnea, unspecified (principal); Z87.891 Personal history of nicotine dependence
CPT/HCPCS: 94060; 94726; 94729; J7611

== ENCOUNTER 2022-10-26 09:17 | Outpatient (CLI) | payer OTHER, SELFPAY ==
--- NOTE | 2022-10-26 09:30 | CT_ITS ---
WS: [id number] CT ANGIOGRAPHY abdomen and pelvis. HISTORY: AAA TECHNIQUE: CT angiogram is performed during IV injection. Reformation images reviewed. All CT scans a [facility] use at least one of these dose optimization techniques: automated exposure contro l; mA and/or kV adjustment per patient size (includes targeted exams where dose is matched to clinica l indication); or iterative reconstruction. CONTRAST: Omnipaque 350; 95 mL IV. DLP: 797.85 mGy.cm COMPARISON: CT lung screen 11/20/2021 Chronic emphysematous changes at the lung bases. No change in the 5 mm pleural nodule RIGHT middle lo be. Heart is normal size. Small hiatal hernia. Abdominal aorta: Atherosclerotic plaque and intimal thickening within the aorta. No aneurysm. There i s a small amount of calcified plaque at the origin of the mesenteric arteries but no high-grade occlu jordy. Bifurcation is intact. Calcifications continue into the external iliac arteries without high-gr zuleika stenosis or occlusion. Renal arteries with a small amount of calcified plaque. Early arterial enhancement of the visceral organs demonstrates no acute abnormalities. There are bila teral renal cysts. Some are too small to characterize. No renal obstruction. No adrenal mass. Normal size spleen. Mild atrophy of the pancreas. No bile duct dilatation. No adenopathy. No GI tract obstru ction. Normal appendix. Numerous diverticula throughout the colon. There is circumferential mild wall thickening involving a long segment of the sigmoid. Mild wall thickening of the urinary bladder measuring up to 5 mm. There is marked enlargement and lob ularity of the prostate gland with central calcifications. Seminal vesicles are prominent. Increase in lumbar lordosis. CT/CT angio abdomen pelvis [id number] IMPRESSION: 1. No abdominal aortic aneurysm. 2. Atherosclerotic plaque involving the abdominal aorta and mesenteric arterie s but no high-grade stenosis. 3. Extensive diverticular disease with chronic circumferential wall thickening involving a long segment of the sigmoid. Probably all due to chronic diverticu litis. Colonoscopy would be of benefit if this has not been performed recently. 4. Bilateral renal cysts. 5. Markedly enlarged prostate gland.
[2022-10-26] MEDS: iohexol 350 mg/mL 500 mL Btl (per mL) IV (09:44)
[2022-10-26 09:58] LABS: Blood Urea Nitrogen 15 mg/dL (8-23)
== END 2022-10-26 09:18 | disposition home or self-care (01) ==
LOC: RAD 09:18
PROVIDERS: PCP Emergency Medicine Emergency Medical Services; Visit Provider Thoracic Surgery (Cardiothoracic Vascular Surgery)
DX: I71.40 Abdominal aortic aneurysm, without rupture, unspecified (principal); I70.0 Atherosclerosis of aorta; N28.1 Cyst of kidney, acquired; N40.0 Benign prostatic hyperplasia without lower urinary tract symptoms; K57.30 Diverticulosis of large intestine without perforation or abscess without bleeding
CPT/HCPCS: 74174; 82565; 84520; Q9967

== ENCOUNTER → 2022-11-11 10:51 | Outpatient (BNVA) | payer OTHER, SELFPAY | PROVIDERS: PCP Emergency Medicine Emergency Medical Services; Visit Provider Internal Medicine Pulmonary Disease | DX: R06.02 Shortness of breath (principal); J42 Unspecified chronic bronchitis; Z87.891 Personal history of nicotine dependence; G47.10 Hypersomnia, unspecified | CPT/HCPCS: 99214 ==

== ENCOUNTER 2022-12-03 09:55 | Outpatient (CLI) | payer OTHER, SELFPAY ==
--- NOTE | 2022-12-03 10:15 | CT_ITS ---
WS: [id number] LDCT LUNG CANCER SCREENING TECHNIQUE: Noncontrast CT of the chest with coronal and sagittal reformatted images. CLINICAL INFORMATION: lung screening Head CT September 06, 2020 COMPARISON: CT lung screen November 20, 2021 DLP: 71.80 mGy.cm DIvol: Mean CTDIvol: 1.60 (mGy) All CT scans at [facility] use at least one of these dose optimization techniques: automat ed exposure control; mA and/or kV adjustment per patient size (includes targeted exams where dose is matched to clinical indication); or iterative reconstruction. FINDINGS:No acute pulmonary infiltrates. Subsegmental atelectasis in the lingula and RIGHT middle lob e. No suspicious pulmonary parenchymal opacities Mild chronic emphysematous changes. No mediastinal or hilar lymphadenopathy. Mild coronary calcificat ion. Thoracic kyphosis with anterior wedging anterior hypertrophic changes. Thoracic curve. Aortic ca lcification. Coronary calcification. No mediastinal or hilar lymphadenopathy. Stable slightly aneurysmal ascending thoracic aorta measuring 4.2 cm. Splenic artery calcification. P ostoperative changes the GE junction. Small esophageal hiatal hernia. No axillary lymphadenopathy. CT/CT lung screening [id number] IMPRESSION: LUNG-RADS: 1-Negative FOLLOW UP: 12 Month: Continue annual screening with LDCT
== END 2022-12-03 09:56 | disposition home or self-care (01) ==
LOC: RAD 09:59
PROVIDERS: PCP Emergency Medicine Emergency Medical Services; Visit Provider Internal Medicine Pulmonary Disease
DX: Z12.2 Encounter for screening for malignant neoplasm of respiratory organs (principal); Z87.891 Personal history of nicotine dependence
CPT/HCPCS: 71271

== ENCOUNTER → 2022-12-24 09:47 | Outpatient (BNVA) | payer OTHER, SELFPAY | PROVIDERS: PCP Emergency Medicine Emergency Medical Services; Visit Provider Thoracic Surgery (Cardiothoracic Vascular Surgery) | DX: I71.21 Aneurysm of the ascending aorta, without rupture (principal) | CPT/HCPCS: 99213 ==

== ENCOUNTER → 2023-05-10 09:06 | Outpatient (BNVA) | payer OTHER, SELFPAY | PROVIDERS: PCP Emergency Medicine Emergency Medical Services; Visit Provider Internal Medicine Pulmonary Disease | DX: R40.0 Somnolence (principal); J42 Unspecified chronic bronchitis; Z87.891 Personal history of nicotine dependence | CPT/HCPCS: 99214 ==

== ENCOUNTER 2023-06-02 14:30 | Outpatient (CLI) | payer OTHER, SELFPAY | END 2023-06-02 14:31 | disposition home or self-care (01) | LOC: SLEEP 06-03 12:07 | PROVIDERS: PCP Emergency Medicine Emergency Medical Services; Visit Provider Internal Medicine Pulmonary Disease | DX: R40.0 Somnolence (principal) | CPT/HCPCS: 94762 ==

== ENCOUNTER → 2023-11-11 10:00 | Outpatient (BNVA) | payer OTHER, SELFPAY | PROVIDERS: PCP Emergency Medicine Emergency Medical Services; Visit Provider Internal Medicine Pulmonary Disease | DX: R06.02 Shortness of breath (principal); J42 Unspecified chronic bronchitis; R40.0 Somnolence; Z87.891 Personal history of nicotine dependence | CPT/HCPCS: 99214 ==

== ENCOUNTER 2023-11-16 13:00 | Outpatient (CLI) | payer OTHER, SELFPAY | END 2023-11-16 13:01 | disposition home or self-care (01) | LOC: SLEEP 11-17 09:19 | PROVIDERS: PCP Emergency Medicine Emergency Medical Services; Visit Provider Emergency Medicine Emergency Medical Services | DX: G47.33 Obstructive sleep apnea (adult) (pediatric) (principal); R09.02 Hypoxemia; R40.0 Somnolence | CPT/HCPCS: G0399 ==

== ENCOUNTER → 2023-12-13 08:20 | Outpatient (BNVA) | payer OTHER, SELFPAY | PROVIDERS: PCP Emergency Medicine Emergency Medical Services; Referring Provider Emergency Medicine Emergency Medical Services; Visit Provider Thoracic Surgery (Cardiothoracic Vascular Surgery) | DX: I71.21 Aneurysm of the ascending aorta, without rupture (principal) | CPT/HCPCS: 99213 ==

== ENCOUNTER 2024-01-05 08:41 | Outpatient (CLI) | payer OTHER, SELFPAY ==
--- NOTE | 2024-01-05 09:00 | CT_ITS ---
WS: [id number] CTA THORACIC TECHNIQUE: Contrast enhanced CTA of the thoracic aorta with coronal and sagittal reformatted images a nd maximum intensity projection (MIP) images. CLINICAL INFORMATION: ascending aorta aneurysm COMPARISON: CT lung screening 2022 Stable ascending aortic aneurysm measuring DLP: 784.[address] scans at [facility] use at least one of these dose optimization techniques: automated e xposure control; mA and/or kV adjustment per patient size (includes targeted exams where dose is matc hed to clinical indication); or iterative reconstruction. FINDINGS: Stable ascending aortic aneurysm measuring 4.0 cm in maximum dimension. Normal caliber descending tho racic aorta. Mild aortic calcification. Coronary calcification. No mediastinal or hilar lymphadenopat hy. Small esophageal hiatal hernia. Postoperative changes at the GE junction. No axillary lymphadenop athy. Adrenal glands are normal. Moderate thoracic kyphosis. Hypertrophic changes thoracic spine. Slight subsegmental atelectasis in t he lung bases. No suspicious pulmonary parenchymal opacities. IMPRESSION: 1. Stable ascending aortic aneurysm measuring 4.0 cm in maximum dimension. 2. Normal caliber descending thoracic aorta. 3. Coronary calcification.
[2024-01-05 09:36] LABS: Blood Urea Nitrogen 13 mg/dL (8-23)
== END 2024-01-05 08:42 | disposition home or self-care (01) ==
PROVIDERS: PCP Emergency Medicine Emergency Medical Services; Visit Provider Thoracic Surgery (Cardiothoracic Vascular Surgery)
DX: I71.21 Aneurysm of the ascending aorta, without rupture (principal)
CPT/HCPCS: 71275; 82565; 84520

== ENCOUNTER → 2025-01-24 09:20 | Outpatient (BNVA) | payer OTHER, SELFPAY | PROVIDERS: PCP Emergency Medicine Emergency Medical Services; Visit Provider Podiatrist Foot & Ankle Surgery | DX: I73.9 Peripheral vascular disease, unspecified (principal); L60.3 Nail dystrophy; G60.0 Hereditary motor and sensory neuropathy | CPT/HCPCS: 11721; 99203 ==

== ENCOUNTER 2025-02-19 07:58 | Outpatient (CLI) | payer OTHER, SELFPAY ==
--- NOTE | 2025-02-19 08:03 | USCV_ITS ---
Charles Warren Age: 79 Gender: M : 1945 Exam Date: 02/19/2025 08:26 Ordering Phys: Idania Brooks APRN Technologist: [place] [facility] [place]: ? mr BP: 124 / 73 HR: 64 Rhythm: Sinus Technical Quality: MEASUREMENTS (Male / Female) Normal Values 2D ECHO LV Ejection Fraction MOD 4C 54.6 % LV Ejection Fraction MOD 2C 75.5 % LV Ejection Fraction 2C AL 76.3 % RA Systolic Volume 4C AL 46.2 ml RA Systolic Volume 4C MOD 44.3 ml IVC Diameter 2.1 cm DOPPLER AV Peak Velocity 153.0 cm/s LVOT Peak Velocity 106.0 cm/s MV Peak Velocity 79.0 cm/s MV Area PHT 2.9 cm squared Mitral E to A Ratio 0.7 TR Peak Velocity 216.0 cm/s TR Peak Gradient 18.7 mmHg TV Peak E Velocity 86.0 cm/s FINDINGS Left Ventricle Normal left ventricular size and systolic function, EF 75%.mild left ventricular hypertrophy. Grade I/IV diastolic dysfunction (abnormal relaxation filling pattern), normal to mildly elevated filling pressures. Right Ventricle The right ventricle is normal in size and function. Right Atrium The right atrium is normal in size. Left Atrium The left atrium is normal in size. Mitral Valve No gross abnormalities noted Aortic Valve Thickened aortic valve. Tricuspid Valve No gross abnormalities noted Pulmonic Valve No gross abnormalities noted Pericardium Normal pericardium without effusion. Aorta Normal ascending aorta dimension. IVC Inferior vena cava not visualized. CONCLUSIONS Normal left ventricular size and systolic function, EF 75%.mild left ventricular hypertrophy. Grade I/IV diastolic dysfunction (abnormal relaxation filling pattern), normal to mildly elevated filling pressures. Thickened aortic valve. There is no pericardial effusion. There are no intracardiac masses. Compared to the study from 05/16/2020, there may not be a significant change Dr Kurt Stern MD [facility] (Electronically Signed) Final Date: 21 Feb 2025 00:29 S
== END 2025-02-19 07:59 | disposition home or self-care (01) ==
PROVIDERS: PCP Nurse Practitioner Family; Visit Provider Nurse Practitioner Family
DX: Z01.89 Encounter for other specified special examinations (principal); I51.7 Cardiomegaly; R93.1 Abnormal findings on diagnostic imaging of heart and coronary circulation; I35.8 Other nonrheumatic aortic valve disorders
CPT/HCPCS: 93306

== ENCOUNTER → 2025-03-28 09:07 | Outpatient (BNVA) | payer OTHER, SELFPAY | PROVIDERS: PCP Nurse Practitioner Family; Visit Provider Podiatrist Foot & Ankle Surgery | DX: I73.9 Peripheral vascular disease, unspecified (principal); L60.3 Nail dystrophy; L84 Corns and callosities; G60.0 Hereditary motor and sensory neuropathy | CPT/HCPCS: 11056; 11721 ==

== ENCOUNTER → 2025-05-30 08:50 | Outpatient (BNVA) | payer OTHER, SELFPAY | PROVIDERS: PCP Nurse Practitioner Family; Visit Provider Podiatrist Foot & Ankle Surgery | DX: I73.9 Peripheral vascular disease, unspecified (principal); L60.3 Nail dystrophy; L84 Corns and callosities; L60.8 Other nail disorders; G60.0 Hereditary motor and sensory neuropathy | CPT/HCPCS: 11721; 99213 ==

== ENCOUNTER → 2025-08-16 08:32 | Outpatient (BNVA) | payer OTHER, SELFPAY | PROVIDERS: PCP Nurse Practitioner Family; Visit Provider Podiatrist Foot & Ankle Surgery | DX: I73.9 Peripheral vascular disease, unspecified (principal); L60.3 Nail dystrophy; L60.8 Other nail disorders; G60.0 Hereditary motor and sensory neuropathy; L84 Corns and callosities; B35.3 Tinea pedis | CPT/HCPCS: 11721; 99213 ==